=== PATIENT | female | born 1960 | race Caucasian/White ===

== ENCOUNTER 2019-06-17 09:43 | Emergency (ER) | payer MEDICAID ==
[~2019-06-17] VITALS: Ht 162.6 cm; Wt 132.9 kg
[~2019-06-17 09:43] MED LIST: ASPIRIN ADULT L81 M1 PO
[2019-06-17 09:57] VITALS: Ht 162.6 cm; Wt 132.9 kg
[2019-06-17 10:57] LABS: UA SPECIFIC GRAVITY >=1.030 (1.005-1.035); microscopic required? YES; urine erythrocyte 2+ (NEGATIVE)
[2019-06-17 13:24] VITALS: BP 127/55
== END 2019-06-17 13:24 | disposition home or self-care (01) ==
LOC: ED 09:43
PROVIDERS: Emergency Medicine
DX: N39.0 Urinary tract infection, site not specified (principal); I10 Essential (primary) hypertension

== ENCOUNTER 2020-04-10 15:18 | Emergency (ER) | payer OTHER, MEDICAID ==
[~2020-04-10] VITALS: Ht 162.6 cm; Wt 126.1 kg
[2020-04-10 15:55] VITALS: Ht 162.6 cm; Wt 126.1 kg
[2020-04-10 16:54] VITALS: BP 147/86
== END 2020-04-10 16:54 | disposition home or self-care (01) ==
LOC: ED 15:18
DX: S40.012A Contusion of left shoulder, initial encounter (principal); I10 Essential (primary) hypertension; Z88.1 Allergy status to other antibiotic agents; V43.52XA Car driver injured in collision with other type car in traffic accident, initial encounter; Y93.I9 Activity, other involving external motion; Y92.413 State road as the place of occurrence of the external cause; Y99.8 Other external cause status